=== PATIENT | female | born 1995 | race Caucasian/White ===

== ENCOUNTER 2019-07-01 23:22 | Inpatient (IN) | payer MEDICAID, SELFPAY ==
[2019-07-01] MEDS: metoclopramide 5 mg/mL SDV 2 mL 10 MG IVP (23:51)
[2019-07-01] MEDS: citric acid-sodium citrate 30 mL UDC PO (23:51)
[2019-07-01] MEDS: famotidine 20 mg/2 mL INJ IVP (23:51)
[2019-07-01] MEDS: lactated ringers 1,000 ML 999 ML IV (23:59)
[2019-07-02] VITALS (16 sets, daily range): BP systolic 104–132; BP diastolic 69–90; PULSE 79–128; RESP 16–20; TEMP 36.6–37; O2SAT 96–99; BMI 30.2
--- NOTE | 2019-07-02 00:03 | ANES.PREANES ---
Pre-Anesthetic Assessment Pre-Anesthetic Assessment: Height/Weight: 5' 3 171lbs Proposed Procedure: Operation Date: 07/02/19 07:30 Proposed Procedures p Section(Not Applicable) - Keke Mcneal MD Was Beta Liat taken within 24 hours: N/A Last Intake: 16:00 Social: Social History: No alcohol and No tobacco Exam: Pre-Anes Outpt Exam: alert Airway: Submandibular: WNL Cervical ROM: WNL MP: 2 Pulmonary: Pulmonary: None reported CV/HEM: CV/HEM: None reported : : None reported Hepatic: Hepatic: None reported GI: GI: None reported Metabolic: Metabolic: Thyroid Musc/skel: Musc/skel: None reported Neuropsych: Neuropsych: None reported Anesthetic Plan: ASA status: E Anesthesia: Anesthesia Evaluation and Eval. for regional block Other: spinal Risk of > 500 ml blood loss (7ml/kg in children): No Meds/Allergies Current Medications: Current Medications Generic Name Dose Route Start Last Admin Trade Name Freq PRN Reason Stop Dose Admin Cefazolin Sodium/D extrose 2 gm in 50 mls @ 100 mls/hr 07/01/19 23:39 07/01/19 23:57 Kefzol IV 07/02/19 00:08 100 mls/hr FLIGHT ENGINEER PERFORMANCE QUALIFIED ONE Administration Protocol Lactated Ringer's 1,000 mls @ 999 m ls/hr 07/01/19 23:41 07/01/19 23:59 Lactated Ringers IV 07/02/19 00:41 999 mls/hr .Q1H1M ONE Administration Data Anesthesia Cardiac Studies: No Data to Display
[2019-07-02 01:17] LABS: Basophils % 0.3 %; Eosinophils # 0.1 10^3/uL (0.0-0.8); Eosinophils % 0.7 %; Hematocrit 32.4 % (37.0-47.0); Hemoglobin 10.3 g/dL (11.5-15.3); Lymphocytes # 1.9 10^3/uL (0.8-4.8); Lymphocytes % 12.8 %; Mean Corpuscular HGB Conc 31.8 g/dL (30.0-36.0); Mean Corpuscular Hemoglobin 24.8 pg (28.0-34.0); Mean Corpuscular Volume 77.9 fL (81-99); Mean Platelet Volume 9.7 fL (7.4-10.4); Monocytes # 1.1 10^3/uL (0.2-0.9); Monocytes % 7.2 %; Neutrophils # 11.8 10^3/uL (1.8-7.7); Neutrophils % 78.6 %; Nucleated Red Blood Cells % 0 %; Platelet Count 400 10^3/cmm (130-400); Red Blood Count 4.16 10^6/uL (4.1-5.3); Red Cell Distribution Width 15.4 % (12.1-15.1)
--- NOTE | 2019-07-02 01:29 | PM.HPUD ---
H&P update H&P Update: DATE OF SURGERY/PROCEDURE: 07/02/19 DATE H&P PERFORMED: 07/01/19 PLANNED PROCEDURE: Operation Date: 07/02/19 07:30 Proposed Procedures p Section(Not Applicable) - Keke Mcneal MD Full H&P HPI: PRIMARY INDICATION/DIAGNOSIS FOR SURGICAL PROCEDURE: This is a 23-year-old G1, P0 at 39 weeks gestation who presented to labor and delivery in active labor complete/complete/ -1 station, breech presentation. She was scheduled to have a planned section later this morning. Urgent section was performed PLANNED PROCEDURE: Primary low transverse section HPI: This is a 23-year-old G1, P0 at 39 weeks gestation who presented in active labor with breech presentation. She had routine care at [facility]. There were no complications during the . Her water broke around 11 PM and she presented around 11:22 PM. Pertinent Exam Findings: PHYSICAL EXAM: alert, oriented x 3, clear to auscultation bilaterally and regular rate & rhythm OTHER PERTINENT EXAM FINDINGS: heart tones 130s with moderate variability, no decelerations A&P Assessment and plan (1) Intrauterine : Status: Acute Code(s): Z34.90 - Encounter for supervision of normal , unspecified, unspecified trimester (2) Breech presentation of fetus palpable vaginally: Status: Acute Code(s): O32.1XX0 - Maternal care for breech presentation, not applicable or unspecified (3) Active labor at term: urgent section Status: Acute
--- NOTE | 2019-07-02 01:33 | PM.PACU ---
PACU note PACU note: Good resp effort VSS Post-Anesthesia Exam: awake and vital signs stable Disposition: back to floor
--- NOTE | 2019-07-02 01:35 | PM.OP ---
Operative Report Post-Operative Note: Date of procedure: 07/02/19 Operative Report: Brief History: Patient presented to labor and delivery in active labor completely dilated, completely effaced with breech presentation. Procedure: Pre-op dx: IUP at 39 weeks Active labor Breech presentation Procedure: Primary low transverse section via Pfannenstiel skin incision Anesthesia: Spinal EBL: 300 mL IV fluids: 1200 mL Urine: 150 mL After informed consent patient was taken to the OR where spinal anesthesia was administered. She was then prepped and draped in normal sterile fashion in dorsal supine position with a left lateral tilt. A Pfannenstiel skin incision was made and carried through to the underlying layer of fascia sharply. The fascial incision was then extended laterally using the Mayos. The fascia was grasped with [place] clamps and the underlying rectus muscles were dissected off taking care to avoid injury to the underlying tissue The peritoneum was entered bluntly using a hemostat. The bladder blade was inserted and the vesicouterine peritoneum was identified and entered sharply using the Metzenbaums. The bladder flap was created digitally and the bladder blade was reinserted. Uterine incision was made in a transverse fashion in the lower uterine segment. Amniotic rupture of membranes was performed with an Allis clamp and clear fluid was noted. The was delivered in luz breech presentation with some difficulty delivering the head. The incision had to be extended laterally to provide more room. The was suctioned at delivery, the cord was clamped and cut and the infant was handed to the waiting pediatric nurse. weight 2975 g 6 pounds 9 ounces Apgars 9 and 9. The placenta was delivered using fundal pressure. The uterus was exteriorized from the abdomen and a dry sponge was used to clear the uterus of clots and debris. Uterine incision was repaired using 0 chromic in a running locked fashion. A second layer of the same suture was used in an imbricating manner. There was a small amount of bleeding at the midline that was sutured using 0 chromic with a [id number] stitch and hemostasis was obtained. The uterus was then returned to the abdomen. Irrigation was used to clear the gutters of clots and debris. Uterine incision was reinspected for hemostasis. The peritoneum was then reapproximated using 4-0 Vicryl in a running fashion. The rectus muscles were gently reapproximated using 4-0 Vicryl in an interrupted fashion. The subfascial tissue was inspected for hemostasis and the fascia was then reapproximated using 0 Vicryl in a running fashion. The subcutaneous tissue was irrigated and any small bleeders were coagulated using the Bovie. The subcutaneous tissue was then reapproximated using 4-0 Vicryl in a running fashion. The skin was then reapproximated using 4-0 Vicryl in a running fashion on a Dylan needle. 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
[2019-07-02] MEDS: ketorolac 30 mg/mL INJ IVP (07:30)
[2019-07-02] MEDS: docusate sodium 100 mg Capsule PO ×2 (09:11→21:40)
[2019-07-02] MEDS: levothyroxine 125 mcg Tablet PO (09:11)
[2019-07-02] MEDS: ferrous sulfate EC 325 mg Tablet PO ×2 (09:11→21:39)
[2019-07-02] MEDS: prenatal vitamin Capsule 1 CAP PO (09:12)
--- NOTE | 2019-07-02 13:37 | ANE.PACU ---
 Inpatient post-anesthesia follow up: Airway intact: Yes Vital signs: Temperature 98.3 F Pulse Rate [Bilate ral Apical] 92 Respiratory Rate 16 Blood Pressure [Le ft Arm] 115/79 Pulse Oximetry 99 Oxygen Delivery Me thod Room Air Oxygen Flow Rate Fraction of Inspir ed Oxygen Hydration adequate: Yes Nausea and vomiting: No Mental status: Baseline
[2019-07-02 14:08] LABS: Hematocrit 31.7 % (37.0-47.0); Hemoglobin 9.6 g/dL (11.5-15.3); Mean Corpuscular HGB Conc 30.3 g/dL (30.0-36.0); Mean Corpuscular Hemoglobin 25.3 pg (28.0-34.0); Mean Corpuscular Volume 83.6 fL (81-99); Mean Platelet Volume 9.4 fL (7.4-10.4); Platelet Count 339 10^3/cmm (130-400); Red Blood Count 3.79 10^6/uL (4.1-5.3); Red Cell Distribution Width 15.9 % (12.1-15.1)
[2019-07-02] MEDS: HYDROcodone-acetaminophen 5-325 mg Tablet PO (16:32)
--- NOTE | 2019-07-02 20:31 | PC.NURSE ---
This nurse in bathroom with pt to witness void after out of shower.
[2019-07-03] MEDS: HYDROcodone-acetaminophen 5-325 mg Tablet PO ×2 (02:46→12:45)
[2019-07-03 06:33] VITALS: BP 106/61; PULSE 99; RESP 16; TEMP 36.7; O2SAT 96
[2019-07-03] MEDS: prenatal vitamin Capsule 1 CAP PO (09:10)
[2019-07-03] MEDS: levothyroxine 125 mcg Tablet PO (09:10)
[2019-07-03] MEDS: ferrous sulfate EC 325 mg Tablet PO (09:11)
[2019-07-03] MEDS: docusate sodium 100 mg Capsule PO (09:11)
[2019-07-03 10:09] VITALS: BP 117/77; PULSE 111; RESP 17; TEMP 36.7
--- NOTE | 2019-07-03 12:28 | PM.DCS ---
Discharge Providers Date of Admission: 07/01/19 23:22 Date of Discharge: 07/03/19 Attending Provider at Admission: Keke Mcneal MD Attending Provider at Discharge: Keke Mcneal MD Diagnoses at Discharge Discharge Diagnosis (1) Intrauterine : Status: Acute Problem details: delivered (2) Breech presentation of fetus palpable vaginally: Status: Acute (3) Active labor at term: Status: Acute (4) Delivery by section for flexed breech presentation: Status: Acute Reason for Visit Reason for Visit: Reason For Visit: CONTRACTIONS Hospital Course Hospital Course: Pt was admitted in active labor with breech presentation. She had a primary and did well postoperateively. She was ambulating, tolerating a regular diet and requesting d/c home on PPD#1. Physical Exam Const: COMMON NORMALS: no apparent distress and healthy appearing GENERAL APPEARANCE: cooperative Chest: COMMONS NORMALS: inspection of chest normal Resp: COMMON NORMALS: normal respiratory effort and clear to auscultation bilaterally AUSCULTATION: clear to auscultation bilaterally Cardio: COMMON NORMALS: regular rate and regular rhythm RATE: regular rate RHYTHM: regular rhythm GI: COMMON NORMALS: soft to palpation and non-tender (inscsion c/d/i) PALPATION: Yes soft Extremity: GENERAL: No edema Discharge Data Data Completed and Pending: Labs from last 24 hours 07/02/19 13:40 WBC 21.0 H RBC 3.79 L Hgb 9.6 L Hct 31.7 L MCV 83.6 D MCH 25.3 L MCHC 30.3 RDW 15.9 H Plt Count 339 MPV 9.4 Vitals: Last Vital Signs Temp 98.0 F 07/03/19 10:09 Pulse 111 H 07/03/19 10:09 Resp 17 07/03/19 10:09 BP 117/77 07/03/19 10:09 Pulse Ox 96 07/03/19 06:33 Discharge Plan Discharge Patient Disposition: Home, Self-Care Condition: Stable Prescriptions: New hydrocodone-acetaminophen 5-325 mg Tablet 1 - 2 tab PO Q4H PRN (Reason: Moderate To Severe Pain) Qty: 20 RF: 0 docusate sodium 100 mg Capsule 100 mg PO BID Qty: 60 RF: 0 Continued levothyroxine 125 mcg Tablet 125 mcg PO DAILY RF: 0 28-800 mg-mcg Tablet 1 tab PO DAILY RF: 0 Discharge Orders: Discharge Order (Routine); Ordered 07/03/19 Ordered By: Keke Mcneal Discharge Diet: Usual diet Discharge Activity: Limit activity as instructed Activity Restrictions/Additional Instructions: NPV for 6 weeks no lifting greater than 10 lbs for 2 pounds Discharge Attestations Time Spent in Discharge Care*: less than 30 min Quality Metrics Clinical Quality Measures During this hospital stay, did patient experience: None Coding Level of Care Code Acute Information Systems Technician for Chg Fwd Diagnoses Intrauterine Z34.90 Breech presentation of fetus palpable vaginally O32.1XX0 Active labor at term Delivery by section for flexed breech presentation O32.1XX0
--- NOTE | 2019-07-03 13:19 | ANE.PACU ---
 Inpatient post-anesthesia follow up: Airway intact: Yes Vital signs: Temperature 98.0 F Pulse Rate [Bilate ral Apical] 111 Respiratory Rate 17 Blood Pressure [Le ft Arm] 117/77 Pulse Oximetry 96 Oxygen Delivery Me thod Room Air Oxygen Flow Rate Fraction of Inspir ed Oxygen Hydration adequate: Yes Nausea and vomiting: No Mental status: Baseline
[2019-07-03 16:30] VITALS: BP 121/77; PULSE 103; RESP 17; TEMP 36.9
[2019-07-03 18:00] VITALS: BP 118/68; PULSE 82; RESP 17; TEMP 36.7
[2019-07-03 18:05] VITALS: BP 118/68; PULSE 82; RESP 17; TEMP 36.7
== END 2019-07-03 18:05 | disposition home or self-care (01) | DRG 788 ==
PROVIDERS: Admitting Provider Family Medicine; Visit Provider Family Medicine
PROC: 10D00Z1 Extraction of Products of Conception, Low, Open Approach (ICD-10-PCS; CPT 59514; principal; 2019-07-02 07:30)
DX: O64.1XX0 Obstructed labor due to breech presentation, not applicable or unspecified (principal); Z3A.39 39 weeks gestation of pregnancy; Z37.0 Single live birth
CPT/HCPCS: 36415; 51702; 59409; 85025; 85027; 96375; 99211; 99221; J0690; J1885; J2250; J2274; J2370; J2405; J2590; J2765; J3490

== ENCOUNTER → 2021-01-25 14:02 | Outpatient (BNVA) | payer OTHER, MEDICAID, SELFPAY | PROVIDERS: Visit Provider Obstetrics & Gynecology | DX: N92.0 Excessive and frequent menstruation with regular cycle (principal); N93.9 Abnormal uterine and vaginal bleeding, unspecified | CPT/HCPCS: 81025; 84443; 85025; 88305 ==

== ENCOUNTER → 2021-02-01 14:07 | Outpatient (BNVA) | payer OTHER, MEDICAID, SELFPAY | PROVIDERS: Visit Provider Obstetrics & Gynecology | DX: N93.9 Abnormal uterine and vaginal bleeding, unspecified (principal) | CPT/HCPCS: 76830 ==

== ENCOUNTER → 2021-12-06 12:28 | Outpatient (BNVA) | payer OTHER, MEDICAID, SELFPAY | PROVIDERS: PCP Registered Nurse; Referring Provider Registered Nurse; Visit Provider Internal Medicine | DX: E03.9 Hypothyroidism, unspecified (principal) | CPT/HCPCS: 36415; 83516; 84439; 84443; 86376; 86800 ==

== ENCOUNTER → 2023-12-04 10:29 | Outpatient (BNVA) | payer OTHER, SELFPAY | PROVIDERS: PCP Registered Nurse; Visit Provider Nurse Practitioner Women's Health | DX: Z34.90 Encounter for supervision of normal pregnancy, unspecified, unspecified trimester (principal); Z3A.00 Weeks of gestation of pregnancy not specified | CPT/HCPCS: 84702; 86850; 86900 ==

== ENCOUNTER → 2023-12-25 10:16 | Outpatient (BNVA) | payer OTHER, SELFPAY | PROVIDERS: PCP Registered Nurse; Visit Provider Obstetrics & Gynecology | DX: Z34.91 Encounter for supervision of normal pregnancy, unspecified, first trimester (principal); Z3A.09 9 weeks gestation of pregnancy | CPT/HCPCS: 76801 ==

== ENCOUNTER → 2024-01-02 09:20 | Outpatient (BNVA) | payer OTHER, SELFPAY | PROVIDERS: PCP Registered Nurse; Visit Provider Nurse Practitioner Women's Health | DX: Z34.90 Encounter for supervision of normal pregnancy, unspecified, unspecified trimester (principal); Z3A.00 Weeks of gestation of pregnancy not specified | CPT/HCPCS: 80307; 81000; 84443; 85025; 86592; 86762; 86803; 86850; 86900; 87086; 87340; 87491; 87591; 87806 ==

== ENCOUNTER → 2024-01-03 13:42 | Outpatient (BNVA) | payer OTHER, SELFPAY | PROVIDERS: PCP Registered Nurse; Visit Provider Nurse Practitioner Women's Health | DX: Z34.90 Encounter for supervision of normal pregnancy, unspecified, unspecified trimester (principal); Z3A.00 Weeks of gestation of pregnancy not specified | CPT/HCPCS: 84439 ==

== ENCOUNTER → 2024-02-13 08:26 | Outpatient (BNVA) | payer OTHER, SELFPAY | PROVIDERS: PCP Registered Nurse; Visit Provider Obstetrics & Gynecology | DX: Z34.90 Encounter for supervision of normal pregnancy, unspecified, unspecified trimester (principal); Z3A.00 Weeks of gestation of pregnancy not specified | CPT/HCPCS: 81000 ==

== ENCOUNTER → 2024-03-11 09:10 | Outpatient (BNVA) | payer OTHER, SELFPAY | PROVIDERS: PCP Registered Nurse; Visit Provider Obstetrics & Gynecology | DX: Z36.2 Encounter for other antenatal screening follow-up (principal); Z3A.20 20 weeks gestation of pregnancy | CPT/HCPCS: 76805 ==

== ENCOUNTER 2024-06-20 19:35 | Outpatient (CLI) | payer OTHER, SELFPAY ==
[2024-06-20] VITALS (9 sets, daily range): BP systolic 129–148; BP diastolic 81–95; PULSE 72–91; RESP 17; TEMP 36.6; O2SAT 97; BMI 32.5
[2024-06-20 20:50] LABS: Bilirubin Urine Negative (Negative); Blood Urine Negative (Negative); Glucose Urine UA Negative (Normal); Ketones Urine Negative (Negative); Leukocyte Esterase Urine Negative (Negative); Nitrate Urine Negative (Negative); Protein Urine 3+ (Negative); Specific Gravity, Urine 1.016 (1.005-1.030); Urine Appearance Clear (CLEAR); Urine Color Yellow (Yellow); Urobilinogen Urine 0.2 mg/dL (Negative)
[2024-06-20 20:55] LABS: Add Urine Microscopic? YES; Bacteria Urine Trace /hpf; Hyaline Casts Urine 3.71 /lpf; RBC Urine 0-2 /hpf (0-2); Squamous Epithelial Cell Urine 0-5 /hpf (0-5); WBC Urine 0-5 /hpf (0-5)
== END 2024-06-20 21:31 | disposition home or self-care (01) ==
LOC: OPOB 19:36 → OBGYN 19:38
PROVIDERS: PCP Registered Nurse; Visit Provider Obstetrics & Gynecology
DX: O26.899 Other specified pregnancy related conditions, unspecified trimester (principal); Z3A.00 Weeks of gestation of pregnancy not specified; R10.9 Unspecified abdominal pain; M54.9 Dorsalgia, unspecified
CPT/HCPCS: 59025; 81001; 83986; 99211

== ENCOUNTER 2024-06-22 11:40 | Outpatient (CLI) | payer OTHER, SELFPAY ==
[2024-06-22] VITALS (22 sets, daily range): BP systolic 127–166; BP diastolic 85–111; PULSE 77–106; RESP 16; BMI 32.8
[2024-06-22 13:45] LABS: Basophils % 0.4 %; Eosinophils # 0.1 10^3/uL (0.0-0.8); Eosinophils % 1.2 %; Hematocrit 35.6 % (36-47); Lymphocytes % 18.7 %; Mean Corpuscular Hemoglobin 26.9 pg (27-33); Mean Platelet Volume 9.6 fL (7.4-10.4); Monocytes # 0.9 10^3/uL (0.2-0.9); Monocytes % 8.8 %; Neutrophils # 7.49 10^3/uL (1.8-7.7); Neutrophils % 70.5 %; Nucleated Red Blood Cells % 0 %; Platelet Count 370 10^3/cmm (157-399); Red Blood Count 4.24 10^6/uL (3.85-5.65); Red Cell Distribution Width 14.4 % (12.1-15.1); White Blood Count 10.62 10^3/uL (3.29-11.43)
[2024-06-22 13:48] LABS: Bilirubin Urine Negative (Negative); Blood Urine Negative (Negative); Glucose Urine UA Negative (Normal); Ketones Urine Negative (Negative); Leukocyte Esterase Urine Negative (Negative); Nitrate Urine Negative (Negative); Protein Urine 3+ (Negative); Urine Appearance Clear (CLEAR); Urine Color Yellow (Yellow); Urobilinogen Urine 0.2 mg/dL (Negative); pH Urine 7.5 (5-7)
[2024-06-22 13:52] LABS: Add Urine Microscopic? YES; Bacteria Urine None Seen /hpf; Hyaline Casts Urine 0.81 /lpf; RBC Urine 0-2 /hpf (0-2); Squamous Epithelial Cell Urine 0-5 /hpf (0-5); WBC Urine 0-5 /hpf (0-5)
[2024-06-22] MEDS: magnesium sulfate premix 4 GM/100 ML PREMIX IV (13:57)
[2024-06-22] MEDS: dextrose 5%-sod chloride 0.45% 1,000 ML 125 ML IV (13:57)
--- NOTE | 2024-06-22 14:00 | PC.NURSE ---
Patient educated on importance of accurate I&Os while on magnesium and need for a chahal catheter. Patient refused placement. MD notified and patient will call out when needing to go to the bathroom for use of bedpan.
[2024-06-22 14:05] LABS: Alanine Aminotransferase 15 U/L (0-33); Albumin Level 3.2 g/dL (3.5-5.2); Alkaline Phosphatase 140 U/L (35-105); Aspartate Amino Transferase 23 U/L (0-32); Blood Urea Nitrogen 11 mg/dL (6-20); Calcium 9.2 mg/dL (8.5-10.5); Carbon Dioxide 22 mmol/L (22-29); Chloride 100 mmol/L (98-107); Globulin 3.1 g/dL (1.3-4.6); Glomerular Filtration Rate 144.9 mL/min (90-130); Glucose 97 mg/dL (65-115); Osmolality Calculated 277 mOsm/kg (285-295); Sodium 134 mmol/L (136-145); Total Bilirubin 0.2 mg/dL (0.15-1.2); Total Protein 6.3 g/dL (6.6-8.7); Uric Acid 6.3 mg/dL (2.4-5.7)
[2024-06-22 14:06] LABS: Anion Gap 16.2 (5-19); Potassium 4.2 mmol/L (3.5-5.1); Urine Creatinine 73 mg/dL (28-217)
[2024-06-22 14:18] LABS: UPRO/UCREAT Ratio 5.53 mg/mg CR; Urine Protein Random 404 mg/dL
--- NOTE | 2024-06-22 14:18 | PM.OBGYHP ---
Providers/Chief Complaint Admitting Physician: Robbin Langston MD Primary BUSINESS CONTINUITY PLANNING DIRECTOR: Robbin Langston MD Primary Care Provider: EVE Sheikh Chief Complaint: hypertension and swelling HPI BUSINESS CONTINUITY PLANNING DIRECTOR History of Present Illness Sandra Ch is a 28 year old female EDC July 29, 2024 At 35 w 1 d Last visit to [facility] was at 21 weeks Presents to L&D c/o headache and facial swelling x one day + movements No abdominal pain, vaginal bleeding, fluid leakage No h/o hypertension / preeclampsia with previous or this POBHx: c-sections x one, breech, 2. y.o. boy PMHx: hypothyroidism All: ibuprofen Present Details : 2 Para: 1 Medications/Allergies Home Medications Medication Instructions Recorded Confirmed Last Taken Type epinephrine 0.1 mg/0.1 mL 0.1 mg IM ONCE PRN 11/16/20 03/18/24 Unknown History injection, auto-injector metoclopramide HCl 5 mg tablet 5 mg PO DAILY #30 tabs 01/02/24 03/18/24 Unknown Rx (Reglan) fluconazole 100 mg tablet 100 mg PO DAILY #1 tab 03/18/24 03/18/24 Unknown Rx (Diflucan) Allergies Allergy/AdvReac Type Severity Reaction Status Date / Time ibuprofen Allergy Unknown Unknown Verified 03/18/24 11:33 PFS BUSINESS CONTINUITY PLANNING DIRECTOR PFSH: Medical History delivery delivered History of hypothyroidism Delivery by section for flexed breech presentation Active labor at term Breech presentation of fetus palpable vaginally Intrauterine delivered Surgical History History of Family History Grandmother Thyroid disease Maternal Denies family history of Diabetes Ovarian cyst Clotting disorder Hyperlipidemia Chronic kidney disease (CKD) Bleeding disorder Cancer Hypertension Stroke Social History Smoking and tobacco/nicotine status: never used tobacco/nicotine Second hand smoke exposure: No Alcohol intake: current Alcohol intake frequency: holidays/special occasions only Substance/Drug Use: never Adopted: No Caregiver/support person: No Lives independently: Yes Household members: spouse and children Housing: House Marital status: Number of children: 1 Highest education level completed: High School Graduate service: No Current occupational status: unemployed History History History 2 Term 1 0 Miscarriages/Ectopic 0 Living Children 1 Care VIVIAN Calculator Estimated Delivery Date Method Current WG Current Estimate 07/29/24 Ultrasound #1 34w 5d Vitals/I&O/Wt Last Vital Signs Pulse 103 H 06/22/24 14:05 BP 135/93 06/22/24 14:05 Weight last 48 hrs Weight 185 lb Physical Exam Narrative: Weight 185 lbs; 5?3? BPs 149 / 105; 166 / 109; 153 / 106; 157 / 106; 158 / 102 General comfortable, awake, alert Lungs: clear Cor: RRR Abd: nontender. FH 35 cm Ext: no edema External monitor: heart tracing good variability, + accelerations OB sono 12-25-23 9 weeks 03-11-24 20 w 3 d; WNL Blood type A + UDS 01-02-24 negative Urine culture 01-02-24 negative Data 06/22/24 13:25 06/22/24 13:25 Results Labs OB ([facility]): Blood Type A Positive 01/02/24 Antibody Screen Negative 01/02/24 Hct 35.6 % (36-47) L 06/22/24 Hgb 11.40 g/dL (11.27-16.99) 06/22/24 Rho(D) Type Rh positive 01/02/24 Plt Count 370 10^3/cmm (157-399) 06/22/24 Hep Bs Antigen Non-reactive (Nonreactive) 01/02/24 Hepatitis C Antibody Non-reactive (Nonreactive) 01/02/24 Rubella IgG Antibody 40.9 IU/mL (0.0-10.0) H 01/02/24 RPR Nonreactive (Nonreactive) 01/02/24 HIV 1&2 Ab & HIV 1 Ag Non-reactive (Non-Reactiv) 01/02/24 TSH 5.29 uIU/mL (0.27-4.20) H 01/02/24 Free T4 0.98 ng/dL (0.82-1.77) 01/03/24 C.trachomatis RNA (TMA) Not detected (NOT DETECTED) 01/02/24 N.gonorrhoeae RNA (TMA) Not detected (NOT DETECTED) 01/02/24 T. vaginalis Amp RNA Not detected (NOT DETECTED) 01/02/24 Chlamydia/GC Comment See note 01/02/24 Uric Acid 6.3 mg/dL (2.4-5.7) H 06/22/24 Ser , Semi-Qnt 35924.00 mIU/mL 12/04/23 Urine Opiates Screen Negative ng/mL (Negative) 01/02/24 Ur Barbiturates Screen Negative ng/mL (Negative) 01/02/24 Ur Phencyclidine Scrn Negative ng/mL (Negative) 01/02/24 Ur Amphetamines Screen Negative ng/mL (Negative) 01/02/24 U Benzodiazepines Scrn Negative ng/mL (Negative) 01/02/24 Urine Cocaine Screen Negative ng/mL (Negative) 01/02/24 U Marijuana (THC) Screen Negative ng/mL (Negative) 01/02/24 Micro Urine Specimen 01/02/24 A&P Assessment and plan (1) : 35 w 1 d Qualifiers: Weeks of gestation: 10 weeks Qualified Code(s): Z3A.10 - 10 weeks gestation of (2) Preeclampsia: Preeclampsia, with severe features Draw labs Start MgSO4 Plan transfer to [facility], for further care due to prematurity (3) History of delivery, currently : h/o x one Attestations Medical Necessity Statement*: patient at 35 w 1 d, with preeclampsia Coding Level of Care Code Acute Code for Chg Fwd Diagnoses 10 weeks gestation of Z3A.10 Weeks of gestation: 10 weeks Preeclampsia O14.90 History of delivery, currently O34.219 Time Spent (min) 60
[2024-06-22] MEDS: betamethasone susp 6 mg/mL 1 mL (per mL) 12 MG IM (14:43)
[2024-06-22] MEDS: acetaminophen 500 mg Tablet 1000 MG PO (14:44)
== END 2024-06-22 18:00 | disposition intermediate care facility (04) ==
LOC: OPOB 11:45 → OBGYN 11:45
PROVIDERS: PCP Registered Nurse; Visit Provider Obstetrics & Gynecology
DX: O14.93 Unspecified pre-eclampsia, third trimester (principal); Z3A.35 35 weeks gestation of pregnancy; O34.219 Maternal care for unspecified type scar from previous cesarean delivery
CPT/HCPCS: 59025; 80053; 81001; 82570; 84156; 84550; 85025; 96372; 99211; J0702; J3475; J7799